=== PATIENT | female | born 1980 | race Caucasian/White ===

== ENCOUNTER 2018-12-07 22:21 | Emergency (ER) | payer OTHER ==
[~2018-12-07] VITALS: Ht 172.7 cm; Wt 68.0 kg
[2018-12-07] MEDS ORDERED: KETOROLAC 60MG/2ML VIAL IM ONE (23:45)
[2018-12-08 01:16] VITALS: BP 117/68
== END 2018-12-08 02:02 | disposition home or self-care (01) ==
LOC: ER 22:21
DX: S01.111A Laceration without foreign body of right eyelid and periocular area, initial encounter (principal); M54.5 Low back pain; M25.572 Pain in left ankle and joints of left foot; V49.59XA Passenger injured in collision with other motor vehicles in traffic accident, initial encounter; Y93.89 Activity, other specified; Y92.89 Other specified places as the place of occurrence of the external cause; Y99.8 Other external cause status
CPT/HCPCS: 12011; 73610; 81025; 96372; 99283; J1885; Z7610